=== PATIENT | female | born 1995 | race Caucasian/White ===

== ENCOUNTER 2018-06-05 06:54 | Outpatient (CLI) | payer MEDICAID ==
--- NOTE | 2018-06-05 09:36 | ULT ---
PELVIC ULTRASOUND; COMPARISON: 07/16/2013. HISTORY: Pelvic pain. TECHNIQUE: Transabdominal and endovaginal imaging of the pelvis is performed. Ovaries are interrogated with gra y scale, color flow, Doppler imaging with spectral waveform analysis. FINDINGS: The uterus is identified. There are no myometrial masses. Uterus measures 4.8 x 4.1 x 8.1 cm. A small amount of fluid is noted in the cervix. Endometrium is homogeneous in echotexture, measuring 1.0 cm. There are cysts in the left and right ovaries measuring 1.5 x 1.2 x 1.4 cm and 0.8 x 0.6 x 0.7 cm res pectively. Overall, the left ovary measures 3.0 x 2.6 x 2.4 cm. The right ovary measures 2.4 x 2.2 x 3.1 cm. There is no free fluid. OVARIAN DOPPLER: There is vascular flow to both ovaries. IMPRESSION: 1. Slightly thickened endometrium with a small amount of fluid in the lower uterine segment. Signif icance is uncertain. If there is concern for pelvic pathology, consider pelvic MRI or sonohysterogra m. 2. Bilateral ovarian cysts. Followup ultrasound in 8-10 weeks is recommended to ensure resolution. POS: SJ
== END 2018-06-05 06:55 | disposition home or self-care (01) ==
LOC: BICULT 06:54
PROVIDERS: ATTEND Family Medicine
DX: R10.2 Pelvic and perineal pain (principal); R93.89 Abnormal findings on diagnostic imaging of other specified body structures; N83.202 Unspecified ovarian cyst, left side; N83.201 Unspecified ovarian cyst, right side
CPT/HCPCS: 76856

== ENCOUNTER 2018-10-10 14:50 | Outpatient (CLI) | payer OTHER ==
--- NOTE | 2018-10-10 15:35 | CT ---
CT ABDOMEN AND PELVIS WITH AND WITHOUT IV CONTRAST 10/10/2018 CLINICAL INFORMATION: Lower pelvic pain during menstrual cycle. Endometriosis. COMPARISON: None. Procedure: Multiple contiguous axial images were obtained and a CT of the abdomen and pelvis with IV contrast. C oronal reformats were performed. FINDINGS: Lower Chest: The lung bases are clear. Vessels: The abdominal aorta is normal in caliber without evidence of an aortic dissection. Abdomen: Portal vein:Patent Gallbladder: The gallbladder is contracted. Liver: within normal limits. Pancreas: within normal limits. Spleen: within normal limits. Adrenals: within normal limits. Kidneys: No renal or ureteral calculi are seen bilaterally. There is no hydronephrosis. Multiple phle boliths are seen in the pelvis. Peritoneum: No ascites or free air, no fluid collection. Bowel: The appendix is visualized and normal in caliber. Opacified loops of small bowel have a normal appearance. Loops of small bowel are normal in caliber.. Mesentery and Retroperitoneum: No enlarged mesenteric or retroperitoneal lymph nodes. Abdominal Wall: within normal limits. Pelvis: Reproductive Organs: The uterus and adnexal structures demonstrate a normal CT appearance. Pelvis within normal limits. Bladder: within normal limits. Bones: within normal limits. IMPRESSION: No acute findings are seen in the abdomen or pelvis.
== END 2018-10-10 14:51 | disposition home or self-care (01) ==
LOC: BICCT 14:50
PROVIDERS: ATTEND Obstetrics & Gynecology
DX: N80.0 Endometriosis of uterus (principal)
CPT/HCPCS: 74178

== ENCOUNTER 2019-12-13 03:16 | Emergency (ER) | payer OTHER ==
[2019-12-13 04:05] LABS: Bilirubin Negative (Negative); Blood, Urine Negative (Negative); Clarity Turbid (Clear); Glucose, Urine (Dipstick) Normal (Negative); Leukocyte 75 Leu/uL (Negative); Mucous/LPF Rare LPF (<2+); Nitrite Negative (Negative); Protein, Urine (Dipstick) 30 mg/dL (Neg-Trace); RBC/HPF 0-3 HPF (0-3); Urobilinogen Normal mg/dL (Less than 2)
[2019-12-13 04:06] LABS: Bacteria/HPF 1+ HPF (None Seen)
== END 2019-12-13 04:36 | disposition home or self-care (01) ==
LOC: ERS 03:16
DX: O26.892 Other specified pregnancy related conditions, second trimester (principal); R10.30 Lower abdominal pain, unspecified; O23.42 Unspecified infection of urinary tract in pregnancy, second trimester; Z3A.17 17 weeks gestation of pregnancy
CPT/HCPCS: 81003; 81015; 87086

== ENCOUNTER 2020-01-05 08:41 | Outpatient (CLI) | payer OTHER ==
--- NOTE | 2020-01-05 12:03 | ULT ---
COMPLETE OB ULTRASOUND GREATER THAN 14 WEEKS: Date: 01/05/2020 HISTORY: anatomy. FINDINGS: Single, viable intrauterine fetus is noted in transverse lie on the maternal right side. Placenta is anterior. Amniotic fluid is within normal limits with an TANVIR of 14.7. heart rate is 144 bpm. Ce rvical length 4.3 cm. Anatomy: Visualized brain, four chamber heart, three vessel cord, stomach, bladder, kidneys, spine, and extremity regions are unremarkable. Biometry: BPD: 4.9 cm - 21 weeks 0 days HC: 18.2 cm - 20 weeks 5 days AC: 16.7 cm - 21 weeks 5 days FL: 3.7 cm - 21 weeks 6 days IMPRESSION: 1. Single, viable intrauterine fetus at 21 weeks 3 days gestation. 2. BERNARD of 05/18/2020. 3. Estimated weight of 436 gm. POS: RRE
== END 2020-01-05 08:42 | disposition home or self-care (01) ==
LOC: BICULT 08:41
PROVIDERS: ATTEND Family Medicine
DX: O09.892 Supervision of other high risk pregnancies, second trimester (principal); Z3A.21 21 weeks gestation of pregnancy
CPT/HCPCS: 76805

== ENCOUNTER 2020-04-14 17:15 | Day surgery (SDC) | payer OTHER ==
[2020-04-14 18:08] VITALS: BP 134/80; TEMP 98.8; BMI 39.9
--- NOTE | 2020-04-14 18:57 | PDOC.LDHP ---
Labor and Delivery H&P Chief complaint: abdominal pain, decreased movement HPI: 24 y/o at 35w2d, patient of Dr. Gonzales, presents with decreased movement and lower abdominal/pelvic/back/vagina pain. Reports the pain is more constant and feels like lightening in her vagina. Denies VB, LOF, or other c oncerns. ROS neg for HEENT, CV, pulm, GI, , neuro, psych, skin, musculoskeletal, or constitutional symptoms other than mentioned above. OB History Details: LTCS at 29 weeks - preeclampsia LTCS at term - repeat Past Medical History: None Previous surgical history: low tranverse CS (x2) Allergies/Adverse Reactions: Allergies Allergy/AdvReac Type Severity Reaction Status Date / Time No Known Allergies Allergy Verified 04/14/20 17:53 Social history: none - Physical Exam Vital signs reviewed and normal: yes General: NAD, resting Lungs: nonlabored breathing Abdomen: gravid Extremeties: no edema (135, mod variability, + accels, no decels) FHT: category 1 [place] contractions every: occasional - Vaginal Exam cm dilated: 1 Effacement: 50% Station: -3 - Assessment 24 y/o at 35w2d with musculoskeletal discomforts of . status reassuring with reactive NST. - Plan -: D/c home with precautions. Advised to keep all appointments.
== END 2020-04-14 19:00 | disposition home health service (06) ==
LOC: L&D/OP 17:15
PROVIDERS: ATTEND Family Medicine
DX: O26.893 Other specified pregnancy related conditions, third trimester (principal); R10.30 Lower abdominal pain, unspecified; R10.2 Pelvic and perineal pain; M54.9 Dorsalgia, unspecified; O36.8130 Decreased fetal movements, third trimester, not applicable or unspecified; O34.211 Maternal care for low transverse scar from previous cesarean delivery; Z3A.35 35 weeks gestation of pregnancy

== ENCOUNTER 2020-05-06 10:13 | Outpatient (CLI) | payer OTHER ==
[2020-05-07 13:42] LABS: SARS-CoV-2 MS2 Positive; SARS-CoV-2 N Gene Positive; SARS-CoV-2 S Gene Positive; SARS-CoV-2 by NAA DETECTED (NotDetected); SARS-CoV-2 orf1ab Positive
== END 2020-05-06 10:14 | disposition home or self-care (01) ==
LOC: LABBT 10:13
PROVIDERS: ATTEND Family Medicine
DX: U07.1 COVID-19 (principal)
CPT/HCPCS: 87635; U0003

== ENCOUNTER 2020-05-10 10:22 | Inpatient (IN) | payer OTHER ==
[2020-05-10] MEDS ORDERED: Bicitra 30 ML UDCUP ONE (10:40)
[2020-05-10] MEDS ORDERED: Bicitra 30 ML UDCUP PO SCH (10:54)
[2020-05-10] MEDS ORDERED: CEFAZOLIN 2 GM in Premix Bag 1 BAG IVPB SCH (10:54)
[2020-05-10] MEDS ORDERED: Promethazine HCl 25 MG/ML VIAL IM PRN ×2 (10:54→13:00)
[2020-05-10] MEDS ORDERED: hydrALAZINE 20 MG/ML VIAL SLOW IVP PRN ×2 (10:54→14:57)
[2020-05-10] MEDS ORDERED: Lactated Ringer's 1,000 ML IV SCH (10:54)
[2020-05-10] MEDS ORDERED: Ondansetron PF 4 MG/2 ML Vial IVP PRN ×3 (10:54→14:57)
[2020-05-10 11:01] VITALS: BMI 41.8
[2020-05-10] MEDS ORDERED: Labetalol HCl 100 MG/20 ML VIAL ONE (11:43)
[2020-05-10 11:55] LABS: Hemoglobin 9.8 g/dL (12.0-16.0); Mean Corpuscular HGB CONC 32.8 g/dL (32.0-36.0); Mean Corpuscular Hemoglobin 27.7 pg (27.0-31.0); Mean Corpuscular Volume 84.3 fL (78.0-98.0); Mean Platelet Volume 8.2 fL (7.4-10.4); Platelet Count 232 thou/uL (130-400); RBC Distribution Width 15.3 % (11.5-14.5); Red Blood Cell (RBC) Count 3.53 mill/uL (4.20-5.40); White Blood Cell (WBC) Count 10.5 thou/uL (4.8-10.8)
[2020-05-10] MEDS ORDERED: Famotidine/PF 20 mg/2ml Vial ONE (11:58)
[2020-05-10] MEDS ORDERED: Scopolamine 1.5 mg/72 hour Patch ONE (11:59)
[2020-05-10] MEDS ORDERED: Ondansetron PF 4 MG/2 ML Vial ONE (11:59)
[2020-05-10] MEDS ORDERED: Oxytocin 10 UNITS/ML VIAL ONE ×2 (12:04→13:23)
[2020-05-10] MEDS ORDERED: Morphine PF 10 MG/10 ML VIAL ONE (12:05)
--- NOTE | 2020-05-10 12:07 | PDOC.OPDEL ---
OB Operative/Delivery Note Delivery Dr/Surgeon: Dr. Gonzales, Dr. Su Pre-Delivery Diagnosis: scheduled section Procedure/Post Delivery Dx: repeat low transverse CS Weeks gestation: 39 Anesthesia: spinal - Additional Findings/Plan Placenta delivered: manual removal findings: low transverse hysterotomy without extension Estimated blood loss: 300 Compilations/Other Findings: Date of Procedure: 05/10/20 Attending Surgeon: Dr. Gonzales Resident surgeon: Dr. Su Procedure: Repeat low transverse caesarean section Preoperative Diagnosis: 1) Term intrauterine 2) Repeat LTCS 3) COVID-19 +, without symptoms. Postoperative Diagnosis: 1) Term delivered 2) same as above Anesthesia: spinal Indications: 25 year old @ 39 wks presents for scheduled repeat LTCS. Procedure in Detail: After risks, benefits, and alternatives were explained to the patient, she gave informed consent. Pre-operative antibiotics included ancef 2 g. The patient was taken to the operating room and spinal anesthesia was placed. She was placed in the supine position with a left tilt and prepped and draped in usual sterile fashion. A Pfannenstiel incision was made with a scalpel and carried down to the level of the fascia which was sharply nicked. The fascial cut was extended bilaterally with curved mayos and bluntly. The inferior and superior edges of the cut fascial edges were elevated with Dolores clamps and the underlying rectus muscles bluntly and sharply dissected free. The recti were divided using blunt dissection. The peritoneum was entered bluntly and retracted manually. The uterus was palpated, nml in appearance and shape. Bladder blade was placed. A low transverse score was made with the scalpel and the uterus was entered in the midline with the scalpel. Amniotomy performed with allis. Clear fluid was seen. The hysterotomy was extended manually. The was noted to be in cephalic and easily delivered with fubal pressure. Infant was vigorous and crying while mouth and nares were bulb suctioned. Cord clamped after 30 seconds and cut, and grossly normal was handed to waiting nurse. Cord blood was obtained. Placenta was manually extracted, found to be intact with 3 vessel cord and discarded. The uterus was externalized, while damp lap was placed over the fundus. Ring forceps were applied to the hysterotomy edges for hemostasis and the endometrium was curetted with a dry lap. The hysterotomy was closed with a running locking 0-Monocryl in the usual fashion. After this hemostasis was achieved. Seprafilm was placed over the anterior portion of the uterus. Pt was experiencing anxiousness and difficulty with being awake. Anesthesia gave more sedating medications to the patient to help keep her calm and she slept the rest of the case. The uterus was internalized and hysterotomy was again noted to be hemostatic. The peritoneum was closed with a 3-0 vicryl in a running fashion. The rectus was evaluated for bleeders, and found to be free of bleeders. The fascia was closed with a running non-locking 0-PDS suture. The subcutaneous tissue was irrigated and the bleeders were attended to with bovie. The subcutaneous spaced was closed with 3 interrupted 3-0 vicryl. The skin was approximated with earl and a pressure bandage was placed. All counts were correct X3. The patient tolerated the procedure well and was taken to the recovery room in stable condition. EBL: 300 ml Time of delivery: 1249 Complications: None Specimens: cord blood Findings: Grossly normal . Grossly normal placenta with 3 vessel cord. Drains: Shah to gravity draining clear urine Post delivery plan: recovery in LICU
[2020-05-10 12:49] LABS: Syphilis Antibody Nonreactive (Nonreactive); Syphilis Antibody Index 0.03 S/CO (<1.00 Non-Reactive)
[2020-05-10] MEDS ORDERED: Metoclopramide HCl 10 MG/2 ML VIAL ONE (12:51)
[2020-05-10] MEDS ORDERED: Ketorolac Tromethamine 30 MG/ML VIAL IVP PRN (13:00)
[2020-05-10] MEDS ORDERED: HYDROmorphone 2 MG/ML VIAL SLOW IVP PRN (13:00)
[2020-05-10] MEDS ORDERED: Meperidine HCl/PF 25 MG/ML VIAL SLOW IVP PRN (13:00)
[2020-05-10] MEDS ORDERED: Naloxone HCl 0.4 mg/ml Vial IVP PRN ×2 (13:00)
[2020-05-10] MEDS ORDERED: Communication Order-Pharmacy FS SCH (13:00)
[2020-05-10] MEDS ORDERED: Ondansetron HCl/PF 4 MG/2 ML Vial IVP PRN (13:00)
[2020-05-10] MEDS ORDERED: diphenhydrAMINE 50 MG/ML VIAL IVP PRN (13:00)
[2020-05-10] MEDS ORDERED: L&D-Morphine 4 MG/ML VIAL SLOW IVP PRN (13:00)
[2020-05-10] MEDS ORDERED: Promethazine HCl 25 MG SUPP PR PRN (13:00)
[2020-05-10] MEDS ORDERED: Naloxone HCl 0.4 mg/ml Vial IV PRN (13:00)
[2020-05-10] MEDS ORDERED: Ketorolac Tromethamine 30 MG/ML VIAL IVP SCH (13:00)
[2020-05-10] MEDS ORDERED: Midazolam HCl 2 mg/2 ml Vial ONE ×3 (13:02→13:16)
[2020-05-10] MEDS ORDERED: Promethazine HCl 25 MG/ML VIAL ONE (13:02)
[2020-05-10 13:28] LABS: HBSAg Index 0.14 S/CO (0-0.99); Hep B Surf Ag Non-Reactive S/CO (NonReactive)
[2020-05-10] MEDS ORDERED: Simethicone Chewable 80 MG TAB PO PRN (14:57)
[2020-05-10] MEDS ORDERED: Meperidine HCl/PF 25 MG/ML VIAL IM PRN (14:57)
[2020-05-10] MEDS ORDERED: NS / Oxytocin 40 units/1000ml 1,000 ML IV SCH (14:57)
[2020-05-10] MEDS ORDERED: Bisacodyl 10 MG SUPP PR PRN (14:57)
[2020-05-10] MEDS ORDERED: diphenhydrAMINE 25 MG CAP PO PRN (14:57)
[2020-05-10] MEDS ORDERED: Lanolin Ointment 7 GM TUBE TOP PRN (14:57)
[2020-05-10] MEDS: Ketorolac Tromethamine 30 MG/ML VIAL IVP SCH ×2 (18:25→23:28)
[2020-05-10] MEDS: Ferrous Sulfate 325 MG TAB PO SCH (20:15)
[2020-05-10] MEDS: Docusate Calcium (SURFAK) 240 MG CAP PO SCH (20:16)
[2020-05-11] MEDS ORDERED: HYDROcodone/Acetaminophen 5/325 mg Tablet PO PRN (02:00)
[2020-05-11] MEDS: Ketorolac Tromethamine 30 MG/ML VIAL IVP SCH (04:27)
[2020-05-11 07:01] LABS: Hemoglobin 8.5 g/dL (12.0-16.0); Mean Corpuscular HGB CONC 32.2 g/dL (32.0-36.0); Mean Corpuscular Hemoglobin 27.5 pg (27.0-31.0); Mean Corpuscular Volume 85.4 fL (78.0-98.0); Mean Platelet Volume 8.3 fL (7.4-10.4); Platelet Count 192 thou/uL (130-400); RBC Distribution Width 15.3 % (11.5-14.5); Red Blood Cell (RBC) Count 3.08 mill/uL (4.20-5.40); White Blood Cell (WBC) Count 11.8 thou/uL (4.8-10.8)
[2020-05-11] MEDS: Ferrous Sulfate 325 MG TAB PO SCH ×2 (09:51→20:20)
[2020-05-11] MEDS: Prenatal Vitamin 1 TAB PO SCH (09:51)
[2020-05-11] MEDS: Docusate Calcium (SURFAK) 240 MG CAP PO SCH ×2 (09:51→20:20)
[2020-05-11] MEDS ORDERED: Lactated Ringer's 1,000 ML IV SCH (12:30)
[2020-05-11] MEDS: Ibuprofen 800 MG TAB PO SCH ×2 (12:55→20:20)
[2020-05-11] MEDS ORDERED: Adacel (T-DAP) 0.5 ML SYRINGE IM ONE (14:57)
[2020-05-12] MEDS: Ibuprofen 800 MG TAB PO SCH ×3 (04:51→20:48)
[2020-05-12] MEDS: Prenatal Vitamin 1 TAB PO SCH (10:13)
[2020-05-12] MEDS: Ferrous Sulfate 325 MG TAB PO SCH ×2 (10:13→20:49)
[2020-05-12] MEDS: Docusate Calcium (SURFAK) 240 MG CAP PO SCH ×2 (10:13→20:49)
[2020-05-12] MEDS: cloNIDine 0.1 MG TAB PO PRN ×2 (10:14→21:08)
[2020-05-13] MEDS: Ibuprofen 800 MG TAB PO SCH ×2 (05:05→13:35)
[2020-05-13 08:05] VITALS: BP 154/93; TEMP 98.4
[2020-05-13] MEDS: Prenatal Vitamin 1 TAB PO SCH (08:43)
[2020-05-13] MEDS: Docusate Calcium (SURFAK) 240 MG CAP PO SCH (08:43)
[2020-05-13] MEDS: Ferrous Sulfate 325 MG TAB PO SCH (08:43)
[2020-05-13] MEDS: HYDROcodone/Acetaminophen 5/325 mg Tablet PO PRN ×2 (08:46→13:36)
[2020-05-13] MEDS ORDERED: Losartan/Hydrochlorothiazide 100 mg/25 mg Tablet PO SCH (09:00)
== END 2020-05-13 15:41 | disposition home or self-care (01) | DRG 786 ==
LOC: L&D 10:22 → 3SW 15:52
PROVIDERS: ADMIT Family Medicine; ATTEND Family Medicine
PROC: 3E0234Z Introduction of Serum, Toxoid and Vaccine into Muscle, Percutaneous Approach (ICD-10-PCS; 2020-05-10)
PROC: 10D00Z1 Extraction of Products of Conception, Low, Open Approach (ICD-10-PCS; principal; 2020-05-11)
DX: O98.52 Other viral diseases complicating childbirth (principal); U07.1 COVID-19; O34.211 Maternal care for low transverse scar from previous cesarean delivery; Z37.0 Single live birth; Z3A.39 39 weeks gestation of pregnancy; O26.893 Other specified pregnancy related conditions, third trimester; Z67.41 Type O blood, Rh negative
CPT/HCPCS: 36415; 51702; 85027; 85461; 86780; 86850; 86900; 86901; 87340; 90384; 96372; J1885; J2250; J2270; J2405; J2550; J2765; S0028

== ENCOUNTER 2020-05-20 09:45 | Inpatient (IN) | payer OTHER ==
[2020-05-20] MEDS ORDERED: hydrALAZINE 20 MG/ML VIAL ONE (10:12)
[2020-05-20] MEDS ORDERED: Morphine 4 MG/ML VIAL ONE (10:17)
[2020-05-20] MEDS ORDERED: Labetalol HCl 100 MG/20 ML VIAL ONE (10:46)
[2020-05-20] MEDS ORDERED: Fentanyl 100 MCG/2 ML VIAL ONE ×3 (10:55→21:10)
--- NOTE | 2020-05-20 11:10 | CT ---
CT ABDOMEN AND PELVIS WITH IV CONTRAST: INDICATION: Abdominal pain. on May 11. COMPARISON: Comparison is made to CT abdomen and pelvis 10/10/2018. FINDINGS: Lung bases are clear. Liver, spleen, and pancreas unremarkable. The gallbladder is distended. Stomach and duodenum unrema rkable. Adrenal glands and kidneys unremarkable. Small bowel loops appear normal. Appendix appears normal. Colon unremarkable. Images through the pelvis show enlarged uterus consistent with status. There is increased endometrial density. Large fluid volume density within the endometrium and there is also heterogene ous material within the endometrial cavity which could represent blood product or retained products o f gestation. IMPRESSION: uterus. The endometrial cavity is distended and there is abnormal low and high-density ma terial within the endometrial cavity. There is a foal area of high density at the internal os sugges ting retained placenta or other products of gestation. This measures approximately 3.[address] Recommend obstetrical consultation regarding retained endometrial products. POS: OFF
[2020-05-20 11:27] LABS: #Eosinphils 0.3 thou/uL (0.0-0.7); #Lymphocytes 2.4 thou/uL (1.20-3.40); #Monocytes 0.6 thou/uL (0.11-0.59); #Neutrophils 8.4 thou/uL (1.40-6.50); %Basophils 0.1 % (0.0-1.0); %Eosinophils 2.6 % (0.0-10.0); %Lymphocytes 20.2 % (21.0-51.0); %Monocytes 5.2 % (0.0-10.0); %Neutrophils 71.9 % (42.0-75.0); Hemoglobin 10.5 g/dL (12.0-16.0); Mean Corpuscular HGB CONC 32.9 g/dL (32.0-36.0); Mean Corpuscular Hemoglobin 27.3 pg (27.0-31.0); Mean Corpuscular Volume 83.1 fL (78.0-98.0); Mean Platelet Volume 6.5 fL (7.4-10.4); Platelet Count 468 thou/uL (130-400); RBC Distribution Width 14.8 % (11.5-14.5); Red Blood Cell (RBC) Count 3.83 mill/uL (4.20-5.40); White Blood Cell (WBC) Count 11.6 thou/uL (4.8-10.8)
[2020-05-20 11:53] LABS: ALT (SGPT) 10 U/L (8-55); AST (SGOT) 11 U/L (5-34); Albumin 3.7 g/dL (3.5-5.0); Alkaline Phosphatase 113 U/L (40-110); Anion Gap 14 mmol/L (10-20); BUN (Urea Nitrogen) 6 mg/dL (7.0-18.7); Bilirubin, Total 0.4 mg/dL (0.2-1.2); Calc. Creatinine Clearance 0 mL/min (70-130); Carbon Dioxide 23 mmol/L (22-29); Chloride 105 mmol/L (98-107); Estimated GFR-MDRD Greater than 90; Globulin 3.4 g/dL (2.4-3.5); Glucose 92 mg/dL (70-105); Potassium 3.1 mmol/L (3.5-5.1); Protein, Total 7.1 g/dL (6.0-8.3); Sodium 139 mmol/L (136-145)
--- NOTE | 2020-05-20 12:21 | ULT ---
Exam: Pelvic ultrasound including Transabdominal, imaging: HISTORY: 10 days post with increasing pain and vaginal bleeding COMPARISON: None FINDINGS: The uterus is enlarged, measuring 17.7 x 7.3 x 11.8 cm Endometrial thickness:3.3 cm and very heterogeneous echogenicity. Right ovary:Not adequately seen Left ovary:Not adequately seen No abscess or significant abnormal fluid collection. Evidence for some flow within heterogeneous density within the endometrium concerning for retained pr oducts of conception IMPRESSION: Markedly thickened heterogeneous endometrium with evidence for some vascular flow within the heteroge neous density concerning for retained products of conception.
[2020-05-20] MEDS ORDERED: Acetaminophen 325 MG TAB PO PRN (12:51)
[2020-05-20] MEDS ORDERED: Ondansetron ODT 4 MG TAB PO PRN (12:51)
[2020-05-20] MEDS ORDERED: Ibuprofen 800 MG TAB PO PRN (12:53)
[2020-05-20 12:59] LABS: Bilirubin Negative (Negative); Blood, Urine 3+ (Negative); Clarity Turbid (Clear); Glucose, Urine (Dipstick) Normal (Negative); Ketone, Urine Negative (Negative); Leukocyte 250 Leu/uL (Negative); Nitrite Negative (Negative); Protein, Urine (Dipstick) 100 mg/dL (Neg-Trace); RBC/HPF Greater than 50 HPF (0-3); Specific Gravity, Urine 1.027 (1.002-1.036); Squamous Epithelial None Seen HPF (0-3); Urobilinogen Normal mg/dL (Less than 2); WBC/HPF 21-50 HPF (0-3); pH, Urine 7.5 (5.0-9.0)
[2020-05-20 13:00] LABS: Bacteria/HPF 1+ HPF (None Seen)
[2020-05-20] MEDS ORDERED: Labetalol HCl 100 MG/20 ML VIAL SLOW IVP PRN (13:08)
[2020-05-20] MEDS ORDERED: Succinylcholine 200 MG/10 ml SYRINGE FS ONE (13:15)
[2020-05-20] MEDS ORDERED: Ondansetron PF 4 MG/2 ML Vial ONE ×2 (13:15→17:42)
[2020-05-20] MEDS ORDERED: ePHEDrine 50 MG/ML VIAL ONE (13:15)
[2020-05-20] MEDS ORDERED: PROPOFOL 200 MG/20 ML VIAL ONE (13:15)
[2020-05-20] MEDS ORDERED: Lidocaine 1% PF 5 ML VIAL ONE (13:15)
--- NOTE | 2020-05-20 13:40 | HP ---
HISTORY OF PRESENT ILLNESS: A 25-year-old, G3, P2-1-0-3, who is 10 days status post repeat low-transverse . Per the report, the was uncomplicated. However, the patient returned today for increased bleeding and significant abdominal pain. She had a CT scan performed in the ER, which showed concerns for retained products of conception with a focal area of high density material at the internal os, suggesting retained placenta or other products of conception, measuring approximately 3.5 to 4 cm in diameter. An ultrasound was also performed, which also was reported as concerning for retained products of conception, although the imaging quality was limited. The patient reports that she had stopped bleeding for several days prior to the onset of this bleeding, which has been moderate. She denies any fevers, chills, or other concerns. She is able to urinate without difficulty. Following this delivery, she was placed on labetalol for her history of preeclampsia. However, she has not been taking it for several days. REVIEW OF SYSTEMS: Negative for head, eyes, ears, nose, throat, cardiovascular, respiratory, GI, , neuro, psych, musculoskeletal, skin, or constitutional symptoms other than mentioned above. PAST MEDICAL HISTORY: History of preeclampsia. PAST SURGICAL HISTORY: Low-transverse x3. OB HISTORY: Three C sections, the first at 29 weeks for preeclampsia, the other two were repeat at term. ALLERGIES: NO KNOWN DRUG ALLERGIES. SOCIAL HISTORY: Negative for tobacco, alcohol, or drug abuse. FAMILY HISTORY: Noncontributory. PHYSICAL EXAMINATION: VITAL SIGNS: Hypertensive and mildly tachycardic with blood pressures in the severe range. GENERAL: Awake, alert, in no acute distress, but appears uncomfortable. CHEST: Nonlabored. ABDOMEN: Soft. Uterus palpable just below the umbilicus and tender. No rebound or guarding. PELVIC: Reveals normal-appearing external female genitalia. BUS normal. Vaginal mucosa is pink, moist, and well rugated with a small amount of blood in the vault. The cervix appears nulliparous with no heavy bleeding or products visible. LABORATORY DATA: WBC 11.6, hemoglobin 10.5, hematocrit 31.8, platelets 468. Chemistry, potassium 3.1, otherwise unremarkable. Urine contaminated by blood, but with large amount of protein. ASSESSMENT AND PLAN: A 25-year-old, G3, P2-1-0-3, status post postop day 10 with assumed retained products of conception. I was not able to remove any tissue from the os, and counseled the patient that she will likely need a D and C. We discussed the risks, benefits, and alternatives, and she agrees to proceed. Consents were signed. Type and screen was ordered. Following the procedure, she will be placed on observation to manage her blood pressure with magnesium if indicated. She has been receiving blood pressure treatment in the ER with hydralazine and labetalol. The patient is n.p.o. and will proceed to the OR for a suction D and C later today. Job ID: [id number] MTDD
[2020-05-20] MEDS ORDERED: Calcium Gluconate 4.6 MEQ in Sodium Chloride 0.9% 100 ML IVPB PRN (17:21)
[2020-05-20] MEDS ORDERED: Morphine 10 MG/ML VIAL ONE (17:22)
[2020-05-20] MEDS ORDERED: Magnesium Sulfate 20 gm/500 ml 20 GM/500 ML BAG ONE (17:22)
[2020-05-20] MEDS ORDERED: Magnesium Sulfate 20 GM/WATER 500 ML BAG IVPB SCH (17:30)
[2020-05-20] MEDS ORDERED: Morphine 4 MG/ML VIAL SLOW IVP SCH (17:30)
[2020-05-20] MEDS ORDERED: Morphine 2 MG/ML VIAL SLOW IVP SCH (17:30)
[2020-05-20] MEDS: Magnesium Sulfate 20 gm/500 ml 20 GM/500 ML BAG IVPB SCH (17:36)
[2020-05-20] MEDS ORDERED: Ondansetron PF 4 MG/2 ML Vial IVP PRN (17:40)
[2020-05-20 18:15] VITALS: BP 159/103; TEMP 99.5
[2020-05-20 18:27] VITALS: BMI 36.1
--- NOTE | 2020-05-20 18:40 | PDOC.EVN ---
Event Note - Event Note Event Note: I am coming onto duty. Ms Mik has made it to L&D having abdominal pain, severe range bp, proteinuria. US show enlarged uterus due to contents in the uterus. awaiting to go to OR. Pt has been counselled to risks of D&C including, bleeding, damage to bowel or bladder, perforation, infection, hysterectomy. PT has expressed understanding and desires to proceed. Fundus is exquisitely tender. Pt is s/p csection putting risk for endomyometritis higher. She is afebrile at this time. Wc only 10,000. However given the concerns for retained poc and physical findings will start abx for endomyometritis. amp/gent/clinda
[2020-05-20] MEDS ORDERED: Gentamicin 20 MG/2 ML PF (Neonates) IVPB SCH (18:45)
[2020-05-20] MEDS ORDERED: Gentamicin 400 MG in Sodium Chloride 0.9% 100 ML IVPB SCH (20:00)
[2020-05-20] MEDS ORDERED: Potassium Chloride 20 MEQ TAB PO SCH (21:00)
[2020-05-20] MEDS ORDERED: FLU VACC QS2020-21(6MOS UP)/PF 60 MCG/0.5 ML SYRINGE IM ONE (21:00)
[2020-05-20] MEDS ORDERED: Midazolam HCl 2 mg/2 ml Vial ONE (21:10)
[2020-05-20] MEDS ORDERED: Silver Nitrate Application 1 EACH ONE (22:02)
[2020-05-20] MEDS ORDERED: Ondansetron HCl/PF 4 MG/2 ML Vial IVP PRN (22:21)
[2020-05-20] MEDS ORDERED: Promethazine HCl 25 MG/ML VIAL SLOW IVP PRN (22:21)
[2020-05-20] MEDS ORDERED: Promethazine HCl 25 MG/ML VIAL IM PRN (22:21)
[2020-05-20] MEDS: Ampicillin 2 GM in Sodium Chloride 0.9% 100 ML IVPB SCH (23:26)
[2020-05-21] MEDS: Clindamycin/D5W 900 MG in Premix Bag 1 BAG IVPB SCH ×2 (00:49→07:07)
[2020-05-21] MEDS: Magnesium Sulfate 20 gm/500 ml 20 GM/500 ML BAG IVPB SCH (03:17)
[2020-05-21] MEDS: Ampicillin 2 GM in Sodium Chloride 0.9% 100 ML IVPB SCH (07:07)
--- NOTE | 2020-05-21 07:24 | OP ---
DATE OF PROCEDURE: 05/20/2020 PRIMARY HIV NURSE: Eleuterio Gonzales MD. PREOPERATIVE DIAGNOSES: 1. Suspected retained products. 2. Postoperative day 10 status post section. 3. Abdominal pain. 4. Retained products of conception by ultrasound. 5. preeclampsia with severe features. 6. Suspected endomyometritis. POSTOPERATIVE DIAGNOSES: 1. Suspected retained products. 2. Postoperative day 10 status post section. 3. Abdominal pain. 4. Retained products of conception by ultrasound. 5. preeclampsia with severe features. 6. Suspected endomyometritis. PROCEDURE PERFORMED: Suction D and C. DESIGN/ANIMATION INSTRUCTOR: Dr. Villanueva. BLOOD LOSS: Approximately 50-75 mL. COUNTS: Correct. COMPLICATIONS: None. CONDITION: Stable to recovery room. INDICATION FOR PROCEDURE: The patient is a 25-year-old female who presented to the emergency room for increased bleeding and significant abdominal pain. Imaging in the emergency room showed high density material at the level of the internal os, suspicion for retained products of conception. The patient was evaluated by Dr. Amador and put in the OR schedule for suction D and C. Approximately 2 to 3 hours after arrival to my shift, the patient was taken to the operating room after discussing with her the risks and benefits of the procedure. DESCRIPTION OF PROCEDURE: She was placed in dorsal lithotomy position in [facility] after being placed under general anesthesia. She was prepared and draped in normal sterile fashion. Attention was placed vaginally. An operative speculum was used to see and identify the cervix. A single-tooth tenaculum was applied to the anterior lip of the cervix, and the uterus was sounded to approximately 10 cm blunted curette was done, and the only thing that came out was some old dark black mucousy blood. Prior to this, the cervix was dilated to approximately 20-Filipino. A larger sharp curette was then used and gently passed into the uterine cavity and raked across the posterior and sidewalls of the uterus being careful to avoid anterior portion, also raked at the fundal region again removing what looks to be just old black mucousy blood. There was no evidence of purulence. There was no odor. There was no color to suggest such. A suction 10 mm suction curette was then used at 20 cm of suction gently passed through into the uterine cavity and to suction the available contents passing to the canister. Initially, it was a small amount of what appeared to be tissue and this followed by fairly significant amount of again black bloody mucousy contents. The sharp curette was then introduced and again passed gently. There was a good uterine cry posteriorly. Anteriorly, it was avoided due to the recent . Looking in the canister, the canister had a fair large amount of this black mucousy blood mixed with a small amount of tissue that was seen at the beginning which seems to appear subjectively to account for the contents seen on ultrasound and CT. At that point in time, the procedure was then completed and the patient was taken out of lithotomy position and taken to recovery room in stable condition. Job ID: [id number]
--- NOTE | 2020-05-21 08:49 | PRG ---
DATE OF SERVICE: 05/21/2020 HISTORY OF PRESENT ILLNESS: The patient is a 25-year-old female, who was admitted yesterday for concerns of preeclampsia with severe features, retained products of conception. She was started on magnesium for seizure prophylaxis after requiring several doses of IV labetalol to control her blood pressures and findings of proteinuria in her urine. The patient was also started on ampicillin, gentamicin and clindamycin after physical exam findings of exquisite fundal tenderness and there are findings of possible retained products of conception by ultrasound. The patient was taken to the operating room, where she had a suction D and C, findings were not consistent of endomyometritis. After one dose of gentamicin, clindamycin, ampicillin, antibiotics were discontinued. Since surgery her blood pressures have all been in the 100s to one-teens. The patient reports this morning that she feels much better. She has minimal pain without pain medication and denies any other symptoms. PHYSICAL EXAMINATION: VITAL SIGNS: This morning, blood pressure is 122/83, heart rate of 82, respiratory rate of 18, saturating 98% on room air. GENERAL: She appears to be in no acute distress. She is alert, oriented, cooperative, and pleasant to interact with. She is alert, oriented, cooperative, and pleasant to interact with. HEAD: Normocephalic, atraumatic. LUNGS: Clear to auscultation bilaterally. ABDOMEN: Soft. She does have some minimal residual tenderness on that right side, but it is much much improved than at the time of my coming on to duty yesterday. GENITOURINARY: Urine output was about 2 L. ASSESSMENT AND PLAN: The patient is a 25-year-old female, who is postop day #10, status post a repeat that went without complications. She did undergo a dilatation and curettage for suspected retained products of conception after which patient reports that she is having much improved symptomatology. She has no clear evidence of infection with it being afebrile and normal white count and now resolution of her pain. I had little concern for any complications to her diagnosis of preeclampsia and have discontinued the magnesium given all normal blood pressure since yesterday evening. Plan at this time will be to continue in-house observation through the morning and into the afternoon to see if her blood pressures return and required treatment. If not anticipate discharge this afternoon on an antibiotic given her postoperative status and the manipulation with dilatation and curettage. Dr. Bar is on the oncoming physician who will be making disposition. Job ID: [id number]
--- NOTE | 2020-05-21 13:21 | PDOC.BPN ---
- Brief Progress Note L&D Check Patient feels well after her D&C. BPs are ok off Mag Our plan is to watch BPs until 1500 anf then home. case reviewed with Leeanne
--- NOTE | 2020-05-21 14:33 | PDOC.BPN ---
- Brief Progress Note At bedside now BPs reviewed. Last was 140s/90s but she stated she was rushing back to bed from BR. No PIH sxs. Dr Gonzales has ordered labetolol for her at home. OK for DC with BP check this week, ideally within 72 hrs. Home with yl roddyerically due to D&C HX OK for home at 1500...she states she feels better. Please see dictation.
--- NOTE | 2020-05-21 14:58 | DIS ---
DATE OF ADMISSION: 05/20/2020 DATE OF DISCHARGE: 05/21/2020 PRINCIPAL DIAGNOSIS: Suspected retained products of conception in a state. PRINCIPAL PROCEDURE: Suction dilation and curettage performed by Dr. Earl. HOSPITAL COURSE: In brief, this is a patient of Dr. Gonzales. This patient presented in a state, having recently delivered about 10 days ago by repeat . She was admitted for increased bleeding and some significant abdominal pain. She had a CT scan performed in the ER, which showed concerns for retained products. She also had some elevated blood pressures in the ER, but it was unsure if that was a secondary process or just due to the pain that she was feeling. She was given some labetalol in the ER and was started on magnesium sulfate. Patient underwent a suction D and C by Dr. Earl and for full details, please turn to that dictation done by Dr. Earl. I evaluated the patient on 05/21/2020, found her to be hemodynamically stable and improved. She was requesting to be discharged. By 05/21/2020, at the time of this dictation around 1425, there was no further evidence of high blood pressure abnormalities or a fever. As she was doing well, the plan was to send her home on Flagyl 500 mg p.o. b.i.d. for 5 days just because of the recent instrumentation of the uterus. Also important to note that the patient did have a previous SARS-CoV-2 PCR positive, this was on 05/06/2020, which was before her original delivery admission. DISCHARGE DIAGNOSES: 1. Possible retained products of conception, pathology report pending. 2. state. Principal procedure is suction dilation and curettage. PLAN: For the patient to continue with her follow up with Dr. Gonzales. Job ID: [id number]
== END 2020-05-21 17:10 | disposition home or self-care (01) | DRG 769 ==
LOC: ERS 09:45 → L&D 17:48
PROVIDERS: ADMIT Obstetrics & Gynecology; ATTEND Obstetrics & Gynecology
PROC: 10D17ZZ Extraction of Products of Conception, Retained, Via Natural or Artificial Opening (ICD-10-PCS; principal; 2020-05-20)
DX: O73.1 Retained portions of placenta and membranes, without hemorrhage (principal); Z86.19 Personal history of other infectious and parasitic diseases; O14.15 Severe pre-eclampsia, complicating the puerperium
CPT/HCPCS: 36415; 51702; 74177; 76856; 80053; 81003; 81015; 83735; 85025; 86850; 86870; 86900; 86901; 87086; 88305; 93976; 96374; 96375; 96376; 99285; J0290; J0360; J1580; J2250; J2270; J2405; J2704; J3010; J3475; J3490